=== PATIENT | male | born 1970 | race Caucasian/White ===

== ENCOUNTER → 2016-08-12 | Outpatient (CLI) | payer OTHER ==
[2016-08-12 09:34] LABS: HEMATOCRIT 48.6 % (42.0-52.0); HEMOGLOBIN 15.7 g/dl (14.0-18.0); MEAN CELL VOLUME 96.2 fl (80.0-94.0); MEAN CORPUSCULAR HGB 31.1 pg (27.0-31.0); MEAN CORPUSCULAR HGB CONC 32.3 g/dl (33.0-37.0); MEAN PLATELET VOLUME 10.2 fl (9.6-12.3); RED BLOOD COUNT 5.05 10*6/uL (4.50-5.90); RED CELL DISTRI WIDTH 13.2 % (0-14.5); WHITE BLOOD COUNT 12.2 10*3/uL (4.8-10.8)
[2016-08-12 09:55] LABS: ALBUMIN 4.1 gm/dl (3.1-4.5); ALKALINE PHOSPHATASE 71 U/L (45-117); BILIRUBIN, TOTAL 0.5 mg/dl (0.2-1.0); BUN 14 mg/dl (7-24); CARBON DIOXIDE 30 mmol/L (21-32); CHLORIDE 102 mmol/L (98-107); CHOLESTEROL 229 mg/dL (<200); EST GLOM FILT AFRICAN AMERICAN > 60 ml/min; GLUCOSE 101 mg/dL (65-99); HDL CHOLESTEROL 74 mg/dl (40-60); LDL CHOLESTEROL 132 mg/dL (9-159); POTASSIUM 4.3 mmol/L (3.5-5.1); SGOT/AST 19 IU/L (3-35); SGPT/ALT 31 U/L (12-78); SODIUM 141 mmol/L (136-145); TOTAL PROTEIN 7.9 gm/dL (6.4-8.2); TRIGLYCERIDES 115 mg/dl (<150); VLDL CHOLESTEROL 23 mg/dL (6-40)
[2016-08-14 15:10] LABS: TESTOSTERONE FREE, (DIRECT) 10.7 pg/mL (6.8-21.5)
== END | disposition home or self-care (01) ==
LOC: LAB 08:58
PROVIDERS: Family Medicine
DX: E78.00 Pure hypercholesterolemia, unspecified (principal); E55.9 Vitamin D deficiency, unspecified; R53.83 Other fatigue

== ENCOUNTER 2017-07-23 08:19 | Emergency (ER) | payer OTHER ==
[~2017-07-23] VITALS: Ht 177.8 cm; Wt 77.1 kg
== END 2017-07-23 09:33 | disposition home or self-care (01) ==
LOC: ED 08:19
DX: T15.82XA Foreign body in other and multiple parts of external eye, left eye, initial encounter (principal); F17.200 Nicotine dependence, unspecified, uncomplicated; Y92.9 Unspecified place or not applicable

== ENCOUNTER 2018-06-24 20:23 | Emergency (ER) | payer OTHER ==
[~2018-06-24] VITALS: Ht 177.8 cm; Wt 73.9 kg
== END 2018-06-24 22:33 | disposition home or self-care (01) ==
LOC: ED 20:23
DX: S43.102A Unspecified dislocation of left acromioclavicular joint, initial encounter (principal); S60.512A Abrasion of left hand, initial encounter; S80.212A Abrasion, left knee, initial encounter; F17.200 Nicotine dependence, unspecified, uncomplicated; V29.9XXA Motorcycle rider (driver) (passenger) injured in unspecified traffic accident, initial encounter; Y93.I9 Activity, other involving external motion; Y92.89 Other specified places as the place of occurrence of the external cause; Y99.8 Other external cause status

== ENCOUNTER 2020-01-16 05:50 | Emergency (ER) | payer OTHER ==
[~2020-01-16] VITALS: Ht 177.8 cm; Wt 75.7 kg
[2020-01-16 07:04] LABS: BASO # 0.2 10*3/uL (0.0-0.1); BASO % 1.1 % (0.0-1.0); EOS # 0.3 10*3/uL (0.0-0.4); EOS % 1.6 % (1.0-4.0); LYMPH # 1.7 10*3/uL (1.3-4.4); LYMPH % 10.2 % (27.0-41.0); MEAN CELL VOLUME 97.5 fl (80.0-94.0); MEAN CORPUSCULAR HGB 31.4 pg (27.0-31.0); MEAN CORPUSCULAR HGB CONC 32.2 g/dl (33.0-37.0); MONO # 0.8 10*3/uL (0.1-1.0); MONO % 5.1 % (3.0-9.0); NEUT # 13.3 10*3/uL (2.3-7.9); NEUT % 81.4 % (47.0-73.0); PLATELET COUNT AUTOMATED 285 10*3/uL (130-400); RED BLOOD COUNT 5.13 10*6/uL (4.50-5.90); RED CELL DISTRI WIDTH 12.7 % (0-14.5); WHITE BLOOD COUNT 16.4 10*3/uL (4.8-10.8)
[2020-01-16 07:15] LABS: INTERNATIONAL NORM RATIO 0.9 (2.0-3.5)
[2020-01-16 07:20] LABS: ALBUMIN 4.3 gm/dl (3.1-4.5); ALKALINE PHOSPHATASE 80 U/L (45-117); BUN 7 mg/dl (7-24); CHLORIDE 104 mmol/L (98-107); CREATININE 0.91 mg/dL (0.70-1.30); POTASSIUM 4.2 mmol/L (3.5-5.1); SGOT/AST 31 IU/L (3-35); SGPT/ALT 37 U/L (12-78); SODIUM 136 mmol/L (136-145); TOTAL PROTEIN 8.5 gm/dL (6.4-8.2); TROPONIN I < 0.015 ng/ml (<0.045)
[2020-01-16 07:53] LABS: BILIRUBIN Negative (Negative); BLOOD Negative (Negative); CLARITY Clear (Clear); COLOR Yellow (Yellow); GLUCOSE Negative (Negative); KETONE Negative (Negative); LEUKO ESTERASE Negative (Negative); NITRITE Negative (Negative); SPECIFIC GRAVITY 1.015 (1.001-1.030)
[2020-01-16 08:06] LABS: BACTERIA 1+
== END 2020-01-16 09:01 | disposition home or self-care (01) ==
LOC: ED 05:50
PROVIDERS: Emergency Medicine
DX: R68.83 Chills (without fever) (principal); R11.2 Nausea with vomiting, unspecified